=== PATIENT | female | born 1960 | race Caucasian/White ===

== ENCOUNTER → 2024-07-01 10:27 | Outpatient (CLI) | payer OTHER, SELFPAY ==
--- NOTE | 2024-07-01 | DI.MRI.S_ITS ---
PROCEDURE: MR SHOULDER RT WO CON INDICATIONS: rotator cuff tear right shoulder TECHNIQUE: Noncontrast oblique coronal T2 fast spin echo with fat saturation, oblique sagittal T1 spin echo and T2 fast spin echo with fat saturation, axial T1 spin echo and T2 fast spin echo with fat saturation through the shoulder. COMPARISON: [facility] [place], CR, XR SHOULDER 2+ VIEWS RIGHT, 02/02/2024, 11:22. FINDINGS: Image quality: Excellent. Rotator cuff: Moderate T2 signal elevation diffusely throughout the supraspinatus and infraspinatus tendons at the humeral insertion sites extending the musculotendinous junctions, indicating tendinopathy. Low-grade articular surface tearing of the anterior supraspinatus tendon at the humeral insertion site. High-grade intrasubstance and articular surface tearing of the mid/posterior supraspinatus tendon at the humeral insertion site extending to the musculotendinous junction measuring 10 mm anteroposterior. Low-grade bursal surface tearing of the mid and posterior infraspinatus tendon at the humeral insertion site. Subscapularis and teres minor tendons are intact. Bones and bursae: No bone marrow contusions or fractures. Moderate glenohumeral and acromioclavicular joint degeneration. Severe articular cartilage loss at the glenohumeral joint anteriorly. There is an os acromiale. No pathologic subacromial-subdeltoid or subcoracoid bursal fluid is present. Capsule and soft tissues: Diffuse degenerative fraying of the glenoid labrum with superimposed undercutting superiorly, posteriorly, and inferiorly. The long head of the biceps tendon demonstrates normal location and morphology. The rotator interval appears normal, without fibrosis. The coracohumeral ligament is normal in thickness. IMPRESSION: 1. Supraspinatus and infraspinatus tendinopathy with superimposed partial thickness tears. No full-thickness rotator cuff tear. 2. Acromioclavicular and glenohumeral joint osteoarthritis. Os acromiale is present. 3. Glenoid labral tearing. Dictated by: Cristobal Locke M.D. on 07/01/2024 at 12:14 Approved by: Cristobal Locke M.D. on 07/01/2024 at 12:18
== END ==
PROVIDERS: PCP Physician Assistant; Referring Provider Orthopaedic Surgery; Visit Provider Orthopaedic Surgery
DX: M75.111 Incomplete rotator cuff tear or rupture of right shoulder, not specified as traumatic (principal); M19.011 Primary osteoarthritis, right shoulder; S43.491A Other sprain of right shoulder joint, initial encounter
CPT/HCPCS: 73221